=== PATIENT | female | born 2000 | race Caucasian/White ===

== ENCOUNTER 2018-06-04 13:02 | Inpatient (IN) | payer OTHER ==
[~2018-06-04] VITALS: Ht 162.6 cm; Wt 48.8 kg
[2018-06-04] MEDS ORDERED: SODIUM CHLORIDE 0.9% 1,000 ML IV ONE (13:20)
[2018-06-04] MEDS ORDERED: SODIUM CHLORIDE FLUSH 10ML SYR IVF ONE (13:30)
[2018-06-04] MEDS ORDERED: ACETAMINOPHEN 325 MG TABLET PO ONE (13:30)
[2018-06-04] MEDS ORDERED: ONDANSETRON 2MG/ML, 2ML IVPush ONE (13:30)
[2018-06-04] MEDS ORDERED: SODIUM CHLORIDE 0.9% 1,000ML IVBOLUS ONE (13:30)
[2018-06-04] MEDS ORDERED: ONDANSETRON 2MG/ML, 2ML ONE (13:38)
[2018-06-04] MEDS ORDERED: ACETAMINOPHEN 325 MG TABLET ONE (13:38)
[2018-06-04 13:49] LABS: BASOPHILS % (AUTO) 0 % (0-1); EOSINOPHILS % (AUTO) 0 % (1-7); LYMPHOCYTES # (AUTO) 1.11 x10^3/uL (1-6.1); LYMPHOCYTES % (AUTO) 7 % (22-44); MD NO; MEAN CORPUSCULAR HEMOGLOBIN 30.3 pg (27.0-34.8); MEAN CORPUSCULAR HGB CONC 33.4 g/dL (32.4-35.8); MEAN CORPUSCULAR VOLUME 90.7 fL (80-100); MEAN PLATELET VOLUME 8.6 fL (7.4-10.4); MONOCYTES # (AUTO) 0.36 x10^3/uL (0-1.4); MONOCYTES % (AUTO) 2 % (2-9); NEUTROPHILS # (AUTO) 15.04 x10^3/uL (1.8-8.0); NEUTROPHILS % (AUTO) 91 % (42-75); PLATELET COUNT 407 x10^3/uL (130-400); RED BLOOD COUNT 4.49 x10^6/uL (3.82-5.3); RED CELL DISTRIBUTION WIDTH 13.5 % (9.6-15.2)
[2018-06-04 13:58] LABS: ALANINE AMINOTRANSFERASE 13 U/L (12-78); ALBUMIN 4.6 g/dL (3.4-5.0); ANION GAP 14 mmol/L (5-15); CALCIUM 8.9 mg/dL (8.5-10.1); CHLORIDE 112 mmol/L (98-107); CREATININE 0.88 mg/dL (0.55-1.02)
[2018-06-04 14:01] LABS: ALKALINE PHOSPHATASE 65 U/L (45-117); BILIRUBIN,TOTAL 0.1 mg/dL (0.2-1.0)
[2018-06-04 14:18] LABS: RAPID INFLUENZA A Negative (Negative); RAPID INFLUENZA B Negative (Negative)
--- NOTE | 2018-06-04 14:20 | NUR ---
pt in bed in gown. cont o2 and bp monitoring in place. lp set-up in room and consent signed.
[2018-06-04] MEDS ORDERED: LIDOCAINE-MPF 1%, 5ML ONE (14:24)
[2018-06-04 15:34] LABS: GLUCOSE, CSF 80 mg/dL (40-80); TOTAL PROTEIN,CSF 49 mg/dL (15-45)
[2018-06-04 16:41] LABS: CULTURE INDICATED? YES; MICROSCOPIC INDICATED
[2018-06-04] MEDS ORDERED: CEFTRIAXONE PMX 1GM/50ML 50 ML IVPB ONE (17:30)
[2018-06-04] MEDS ORDERED: CEFTRIAXONE PMX 1GM/50ML 50 ML ONE (17:38)
[2018-06-04] MEDS ORDERED: SODIUM CHLORIDE FLUSH 10ML SYR IVF PRN (18:00)
[2018-06-04] MEDS ORDERED: POLYETHYLENE GLYCOL 17 GM PACKET PO PRN (18:30)
[2018-06-04] MEDS ORDERED: BISACODYL 10 MG SUPP PR PRN (18:30)
[2018-06-04] MEDS ORDERED: ONDANSETRON ODT 4 MG PO PRN (18:30)
[2018-06-04] MEDS ORDERED: CEFTRIAXONE PMX 1GM/50ML 50 ML IV SCH (18:30)
[2018-06-04 19:10] LABS: HEMOGLOBIN A1C 4.8 % (4.2-6.3)
[2018-06-04 19:31] VITALS: BP 94/68
[2018-06-04 19:43] VITALS: BP 94/67
[2018-06-04] MEDS: SODIUM CHLORIDE 0.45% 1,000 ML IV SCH (19:56)
[2018-06-04] MEDS ORDERED: ERGOCALCIFEROL 50,000 UNIT CAPSULE PO SCH (20:00)
[2018-06-04 23:41] LABS: AMPHETAMINE SCREEN, URINE Negative (Negative); BARBITURATE SCREEN, URINE Negative (Negative); BENZODIAZEPINE SCREEN, URINE Negative (Negative); CANNABINOID SCREEN, URINE Negative (Negative)
[2018-06-04 23:43] LABS: COCAINE SCREEN, URINE Negative (Negative); METHADONE SCREEN, URINE Negative (Negative); OPIATE SCREEN, URINE Negative (Negative)
[2018-06-05] MEDS: BUTALB/APAP/CAFFEINE 50MG/325MG/40MG PO PRN ×3 (00:23→20:57)
[2018-06-05 01:46] VITALS: BP 95/67
[2018-06-05] MEDS: ACETAMINOPHEN 325 MG TABLET PO PRN ×2 (02:43→18:30)
[2018-06-05] MEDS: SODIUM CHLORIDE 0.45% 1,000 ML IV SCH ×2 (04:03→20:35)
[2018-06-05 04:48] LABS: MEAN CORPUSCULAR HEMOGLOBIN 31.7 pg (27.0-34.8); MEAN CORPUSCULAR HGB CONC 34.2 g/dL (32.4-35.8); MEAN CORPUSCULAR VOLUME 92.9 fL (80-100); MEAN PLATELET VOLUME 8.6 fL (7.4-10.4); PLATELET COUNT 319 x10^3/uL (130-400); RED BLOOD COUNT 3.64 x10^6/uL (3.82-5.3); RED CELL DISTRIBUTION WIDTH 13.6 % (9.6-15.2)
[2018-06-05 04:55] LABS: ALBUMIN 3.7 g/dL (3.4-5.0); ANION GAP 11 mmol/L (5-15); CALCIUM 8.3 mg/dL (8.5-10.1); CHLORIDE 118 mmol/L (98-107)
[2018-06-05 04:59] LABS: ALANINE AMINOTRANSFERASE 13 U/L (12-78); ALKALINE PHOSPHATASE 50 U/L (45-117); BILIRUBIN,TOTAL 0.2 mg/dL (0.2-1.0); CREATININE 0.57 mg/dL (0.55-1.02); TOTAL PROTEIN 6.4 g/dL (6.4-8.2)
[2018-06-05 05:41] LABS: BASOPHILS # (AUTO) 0.02 x10^3/uL (0-0.3); BASOPHILS % (AUTO) 0 % (0-1); EOSINOPHILS # (AUTO) 0.01 x10^3/uL (0-0.8); EOSINOPHILS % (AUTO) 0 % (1-7); LYMPHOCYTES # (AUTO) 1.19 x10^3/uL (1-6.1); LYMPHOCYTES % (AUTO) 9 % (22-44); MD SCAN; MONOCYTES # (AUTO) 0.65 x10^3/uL (0-1.4); MONOCYTES % (AUTO) 5 % (2-9); NEUTROPHILS # (AUTO) 12.02 x10^3/uL (1.8-8.0); NEUTROPHILS % (AUTO) 87 % (42-75)
[2018-06-05 07:30] VITALS: BP 96/64
[2018-06-05] MEDS ORDERED: METOCLOPRAMIDE 5 MG/ML, 2ML IVPush ONE (07:30)
[2018-06-05] MEDS ORDERED: DIPHENHYDRAMINE 50 MG/ML, 1ML IVPush ONE (07:30)
[2018-06-05] MEDS: SENNA/DOCUSATE TABLET PO SCH (08:16)
[2018-06-05] MEDS ORDERED: SODIUM CHLORIDE 0.9% 1,000ML IVBOLUS ONE (09:00)
[2018-06-05] MEDS ORDERED: ERGOCALCIFEROL 50,000 UNIT CAPSULE PO SCH (09:00)
[2018-06-05] MEDS ORDERED: PHARMACOKINETIC MONITORING MC PRN (10:30)
[2018-06-05] MEDS ORDERED: VANCOMYCIN PER PHARMACY MC PRN (10:30)
[2018-06-05] MEDS ORDERED: PHARMACOKINETIC CONSULTATION MC ONE (10:30)
[2018-06-05] MEDS ORDERED: GADOBUTROL 7.5 MMOL/7.5 ML PFS ONE (11:14)
[2018-06-05] MEDS: CEFTRIAXONE PMX 2GM/50ML 50 ML IV SCH (13:09)
[2018-06-05 13:29] VITALS: BP 101/67
[2018-06-05] MEDS: ACYCLOVIR 400 MG in SODIUM CHLORIDE 0.9% 100 ML IV SCH ×2 (13:50→22:00)
[2018-06-05] MEDS: VANCOMYCIN PMX 1GM/200ML 200 ML IV SCH (15:12)
[2018-06-05] MEDS ORDERED: CEFTRIAXONE PMX 1GM/50ML 50 ML IV SCH (17:00)
[2018-06-05 21:02] VITALS: BP 100/63
[2018-06-06 01:07] VITALS: BP 101/64
[2018-06-06] MEDS: BUTALB/APAP/CAFFEINE 50MG/325MG/40MG PO PRN ×2 (01:16→06:02)
[2018-06-06] MEDS: CEFTRIAXONE PMX 2GM/50ML 50 ML IV SCH ×2 (01:17→13:37)
[2018-06-06] MEDS: VANCOMYCIN PMX 1GM/200ML 200 ML IV SCH ×2 (02:41→16:52)
[2018-06-06] MEDS: SODIUM CHLORIDE 0.45% 1,000 ML IV SCH ×2 (05:55→13:49)
[2018-06-06] MEDS: ACYCLOVIR 400 MG in SODIUM CHLORIDE 0.9% 100 ML IV SCH ×3 (05:55→23:27)
[2018-06-06 07:35] VITALS: BP 102/63
[2018-06-06 07:47] LABS: MEAN CORPUSCULAR HEMOGLOBIN 30.8 pg (27.0-34.8); MEAN CORPUSCULAR HGB CONC 33.9 g/dL (32.4-35.8); MEAN CORPUSCULAR VOLUME 90.7 fL (80-100); MEAN PLATELET VOLUME 8.5 fL (7.4-10.4); PLATELET COUNT 244 x10^3/uL (130-400); RED BLOOD COUNT 3.45 x10^6/uL (3.82-5.3); RED CELL DISTRIBUTION WIDTH 13.7 % (9.6-15.2)
[2018-06-06 07:49] LABS: ANION GAP 7 mmol/L (5-15); CHLORIDE 115 mmol/L (98-107); CREATININE 0.57 mg/dL (0.55-1.02)
[2018-06-06 08:07] LABS: BASOPHILS # (AUTO) 0.03 x10^3/uL (0-0.3); BASOPHILS % (AUTO) 0 % (0-1); EOSINOPHILS # (AUTO) 0.02 x10^3/uL (0-0.8); EOSINOPHILS % (AUTO) 0 % (1-7); LYMPHOCYTES # (AUTO) 2.39 x10^3/uL (1-6.1); LYMPHOCYTES % (AUTO) 33 % (22-44); MD SCAN; MONOCYTES # (AUTO) 0.57 x10^3/uL (0-1.4); MONOCYTES % (AUTO) 8 % (2-9); NEUTROPHILS # (AUTO) 4.25 x10^3/uL (1.8-8.0); NEUTROPHILS % (AUTO) 59 % (42-75)
[2018-06-06] MEDS ORDERED: methylPREDNISolone 4mg DOSE PACK PO SCH (09:00)
[2018-06-06] MEDS ORDERED: GADOBUTROL 7.5 MMOL/7.5 ML PFS ONE (10:26)
[2018-06-06] MEDS ORDERED: MAGNESIUM SULFATE PMX 2GM/50ML 50 ML IV ONE (10:30)
[2018-06-06] MEDS: SENNA/DOCUSATE TABLET PO SCH (11:09)
[2018-06-06 13:02] VITALS: BP 101/65
[2018-06-06] MEDS: DIPHENHYDRAMINE 50 MG/ML, 1ML IVPush PRN (13:36)
[2018-06-06] MEDS: METOCLOPRAMIDE 5 MG/ML, 2ML IVPush PRN (13:37)
[2018-06-06] MEDS: POTASSIUM CHLORIDE 20 MEQ TAB.ER.PRT PO SCH (16:52)
[2018-06-06] MEDS: ACETAMINOPHEN 325 MG TABLET PO PRN ×2 (18:37→23:30)
[2018-06-06 20:29] VITALS: BP 99/62
[2018-06-07] MEDS: METOCLOPRAMIDE 5 MG/ML, 2ML IVPush PRN ×2 (00:09→07:40)
[2018-06-07] MEDS: DIPHENHYDRAMINE 50 MG/ML, 1ML IVPush PRN ×2 (00:10→07:39)
[2018-06-07] MEDS: CEFTRIAXONE PMX 2GM/50ML 50 ML IV SCH ×2 (01:17→13:09)
[2018-06-07] MEDS: SODIUM CHLORIDE 0.45% 1,000 ML IV SCH (02:50)
[2018-06-07 03:00] VITALS: BP 97/60
[2018-06-07] MEDS: VANCOMYCIN PMX 1GM/200ML 200 ML IV SCH (04:04)
[2018-06-07] MEDS: ACETAMINOPHEN 325 MG TABLET PO PRN ×2 (05:17→20:04)
[2018-06-07 05:41] LABS: BASOPHILS # (AUTO) 0.03 x10^3/uL (0-0.3); BASOPHILS % (AUTO) 0 % (0-1); EOSINOPHILS # (AUTO) 0.06 x10^3/uL (0-0.8); EOSINOPHILS % (AUTO) 1 % (1-7); LYMPHOCYTES # (AUTO) 3.42 x10^3/uL (1-6.1); LYMPHOCYTES % (AUTO) 44 % (22-44); MD NO; MEAN CORPUSCULAR HEMOGLOBIN 31.8 pg (27.0-34.8); MEAN CORPUSCULAR HGB CONC 34.7 g/dL (32.4-35.8); MEAN CORPUSCULAR VOLUME 91.8 fL (80-100); MEAN PLATELET VOLUME 8.6 fL (7.4-10.4); MONOCYTES # (AUTO) 0.61 x10^3/uL (0-1.4); MONOCYTES % (AUTO) 8 % (2-9); NEUTROPHILS # (AUTO) 3.72 x10^3/uL (1.8-8.0); NEUTROPHILS % (AUTO) 48 % (42-75); PLATELET COUNT 230 x10^3/uL (130-400); RED CELL DISTRIBUTION WIDTH 13.3 % (9.6-15.2)
[2018-06-07 05:51] LABS: ANION GAP 6 mmol/L (5-15); CALCIUM 8.3 mg/dL (8.5-10.1); CHLORIDE 110 mmol/L (98-107)
[2018-06-07 05:55] LABS: ALANINE AMINOTRANSFERASE 10 U/L (12-78); ALKALINE PHOSPHATASE 39 U/L (45-117); BILIRUBIN,TOTAL 0.4 mg/dL (0.2-1.0); CREATININE 0.48 mg/dL (0.55-1.02); TOTAL PROTEIN 5.4 g/dL (6.4-8.2)
[2018-06-07 07:23] VITALS: BP 99/68
[2018-06-07] MEDS: POTASSIUM CHLORIDE 20 MEQ TAB.ER.PRT PO SCH ×2 (07:39→17:00)
[2018-06-07] MEDS: ACYCLOVIR 400 MG in SODIUM CHLORIDE 0.9% 100 ML IV SCH (07:39)
[2018-06-07] MEDS: SENNA/DOCUSATE TABLET PO SCH (07:39)
[2018-06-07] MEDS ORDERED: MAGNESIUM SULFATE PMX 2GM/50ML 50 ML IV ONE (11:00)
[2018-06-07] MEDS ORDERED: POTASSIUM CHLORIDE 20 MEQ TAB.ER.PRT PO ONE (12:00)
[2018-06-07 14:40] VITALS: BP 92/61
[2018-06-07] MEDS: IBUPROFEN 200 MG TABLET PO PRN (17:49)
[2018-06-07 19:47] VITALS: BP 94/67
[2018-06-08 01:33] VITALS: BP 99/69
[2018-06-08] MEDS: IBUPROFEN 200 MG TABLET PO PRN (01:39)
[2018-06-08 08:54] LABS: BASOPHILS # (AUTO) 0.02 x10^3/uL (0-0.3); BASOPHILS % (AUTO) 0 % (0-1); EOSINOPHILS # (AUTO) 0.21 x10^3/uL (0-0.8); EOSINOPHILS % (AUTO) 3 % (1-7); LYMPHOCYTES # (AUTO) 2.61 x10^3/uL (1-6.1); LYMPHOCYTES % (AUTO) 33 % (22-44); MD NO; MEAN CORPUSCULAR HEMOGLOBIN 30.6 pg (27.0-34.8); MEAN CORPUSCULAR HGB CONC 33.7 g/dL (32.4-35.8); MEAN CORPUSCULAR VOLUME 90.9 fL (80-100); MEAN PLATELET VOLUME 8.3 fL (7.4-10.4); MONOCYTES # (AUTO) 0.43 x10^3/uL (0-1.4); MONOCYTES % (AUTO) 5 % (2-9); NEUTROPHILS # (AUTO) 4.76 x10^3/uL (1.8-8.0); NEUTROPHILS % (AUTO) 59 % (42-75); PLATELET COUNT 264 x10^3/uL (130-400); RED BLOOD COUNT 3.77 x10^6/uL (3.82-5.3); RED CELL DISTRIBUTION WIDTH 13.6 % (9.6-15.2)
[2018-06-08 09:03] LABS: ANION GAP 7 mmol/L (5-15); CALCIUM 8.6 mg/dL (8.5-10.1); CHLORIDE 110 mmol/L (98-107)
[2018-06-08] MEDS: POTASSIUM CHLORIDE 20 MEQ TAB.ER.PRT PO SCH (09:24)
[2018-06-08] MEDS: ACETAMINOPHEN 325 MG TABLET PO PRN (09:24)
[2018-06-08] MEDS: SENNA/DOCUSATE TABLET PO SCH (09:25)
[2018-06-08 09:27] VITALS: BP 93/62
[2018-06-08 14:32] VITALS: BP 101/73
[2018-06-08] MEDS ORDERED: ACET325T14 PO (15:57)
[2018-06-08] MEDS ORDERED: METH4TAB2 PO (15:57)
[2018-06-08] MEDS ORDERED: ERGO500017 PO (15:57)
== END 2018-06-08 17:09 | disposition home or self-care (01) | DRG 871 ==
LOC: ED 13:25 → EDIP 17:54 → 3NE 19:30 → DCLOUNGE 06-08 17:01
PROVIDERS: ADMIT Internal Medicine; ATTEND Internal Medicine
PROC: 009U3ZX Drainage of Spinal Canal, Percutaneous Approach, Diagnostic (ICD-10-PCS; principal; 2018-06-04)
DX: A41.9 Sepsis, unspecified organism (principal); G93.5 Compression of brain; N10 Acute pyelonephritis; E87.2 Acidosis; E86.0 Dehydration; N92.0 Excessive and frequent menstruation with regular cycle
CPT/HCPCS: 36415; 70450; 70553; 72156; 80048; 80053; 80307; 81001; 82306; 82533; 82945; 83036; 83605; 83735; 84145; 84157; 84443; 84703; 85025; 86788; 86789; 87040; 87070; 87086; 87205; 87252; 87400; 87529; 87798; 89051; 96361; 96365; 96375; 99285; A9585; G0378; J0133; J0696; J2405; J3370; J7509; J1200; J2765; J3475; J7030